=== PATIENT | male | born 1970 | race Caucasian/White ===

== ENCOUNTER → 2022-07-16 | Outpatient (CLI) | payer OTHER ==
--- NOTE | 2022-07-16 08:45 | XR ---
EXAMINATION TYPE: XR knee limited RT DATE OF EXAM: 07/16/2022 8:18 AM INDICATION: Patient age:Male; 51 years old; Reason for study: Z18.10 retained metal fragments; PHH. COMPARISON: None. TECHNIQUE: The Right knee(s) was examined in 3 projections. Frontal, lateral and oblique. FINDINGS: No acute fracture or dislocation. No significant soft tissue swelling or joint effusion. Multiple tiny radiopaque metal fragments identified within the soft tissues of the anterior lateral k nee. IMPRESSION: 1. No acute osseous pathology. 2. Multiple tiny metal fragments identified within the soft tissues of the anterolateral knee.
--- NOTE | 2022-07-16 16:14 | MR ---
EXAMINATION TYPE: MR Rectal wo con DATE OF EXAM: 07/16/2022 11:12 AM CLINICAL INDICATION:Male, 51 years old with history of C20 rectal ca; COMPARISON: None TECHNIQUE: IV Contrast: None TECHNIQUE: Multiplanar, multisequence imaging was performed on a 3T MR scanner with optimized small f ield of view imaging of the rectum. Orthogonal high resolution T2 weighted imaging was obtained thro ugh the rectal mass with additional sequences including T1 weighted images and diffusion weighted jesus ging. IV CONTRAST: None. FINDINGS: IMAGE QUALITY: Adequate PRIMARY TUMOR: MORPHOLOGY, LOCATION, AND CHARACTERISTICS: Distance to anal verge: 11.1 cm Distance to top of anal sphincter complex/anorectal junction: 6.3 cm Relationship to the anterior peritoneal reflection: straddles Craniocaudal length: 5.6 cm Circumferential location (o'clock position): 3 o'clock to 9 o'clock Morphology: Semi-Annular Mucinous: No MRI Rectal Cancer T Category: T3c (tumor penetrates >5-15 mm beyond muscularis propria). There is n o invasion of adjacent structures. It extends 7 mm on series 601 image 14 and appears to extend up to 9 mm on FOR LOW RECTAL TUMORS - Invasion of anal sphincter complex Absent Level of invasion: None EXTRAMURAL VENOUS INVASION (EMVI): No CIRCUMFERENTIAL RESECTION MARGIN (for T3 only) Shortest distance of tumor to MRF (or anticipated CRM): 8 mm (location) 4-5:00 (not applicable if tumor at peritonealized portion of the rectum) Is there a separate tumor deposit, lymph node, or EMVI threatening (> 1 mm and < 2 mm) or invading (< 1 mm) the MRF (if yes, note location): No LYMPH NODES: Mesorectal/superior rectal lymph nodes and/or tumor deposits: N1 - 1-3 suspicious terrance-rectal nodes left internal iliac chain series 601 image 15 , right presacral 601 image 32. *Suspicious morphologic criteria: (1) round shape, (2) irregular borders, (3) heterogenous signal int ensity Superior most suspicious lymph node/deposit is located: Presacral Extra-mesorectal lymph nodes: any suspicious: Yes. Presacral (mesorectal, superior rectal, middle rectal, inferior rectal, sigmoid mesenteric, inferior mesenteric , lateral sacral, presacral, sacral promontory) Locoregional: internal iliac, obturator M1: external iliac, common iliac, inguinal, retroperitoneal OTHER: Curvilinear low T1 signal within the femoral heads. IMPRESSION: * T Stage: T3c (tumor penetrates >5-15 mm beyond muscularis propria). * N Stage: N1 - 1-3 suspicious terrance-rectal nodes * CRM: Clear * Sphincter Involvement: No * Suspicious extramesorectal nodes: Yes, presacral. Other Findings: 1. Bilateral femoral head avascular necrosis changes.
== END | disposition home or self-care (01) ==
LOC: RADMRIMAIN 08:01
PROVIDERS: ATTEND Internal Medicine Hematology & Oncology
DX: C20 Malignant neoplasm of rectum (principal)
CPT/HCPCS: 72195

== ENCOUNTER → 2022-08-31 | Outpatient (CLI) | payer OTHER ==
--- NOTE | 2022-09-03 13:34 | MR ---
EXAMINATION TYPE: MR liver wo/w con DATE OF EXAM: 08/31/2022 9:57 PM INDICATION: Patient age:Male; 51 years old; Reason for study: C20; . Rectal cancer, abnormal PET CT of abdomen COMPARISON: PET/CT 08/07/2022, CT abdomen pelvis 07/24/2015 rectal MRI 07/16/2022 TECHNIQUE: Multiplanar multi-sequence imaging was performed without contrast. Post contrast imaging was performed. Post IV contrast subtraction images were also submitted for review. IV Contrast: 8.5 cc Gadavist FINDINGS: LOWER CHEST: No gross irregularity. ABDOMEN Liver: * No suspicious observations in the area of abnormal subtle increased PET activity on prior PET/CT. * 5 mm high T2 signal focus within segment IVb series 8 on image 36 which demonstrates enhancement t hat persists on delayed imaging. * No signal dropout on out of phase conclusions shift imaging. Gallbladder and Bile ducts: Unremarkable. Pancreas: Unremarkable. Spleen: Unremarkable. Adrenal glands: Unremarkable. Kidneys: Unremarkable. Stomach and Bowel: Small hiatal hernia. No evidence for bowel obstruction or bowel wall thickening. Peritoneum: No evidence of pneumoperitoneum or free fluid. Vasculature: Unremarkable. No aortic aneurysm. Musculoskeletal: The osseous structures appear intact. Lymph Nodes: No gross evidence for lymphadenopathy. Abdominal wall: Unremarkable. IMPRESSION: 1. After further review of PET findings in the areas identified in PET/CT, there is no suspicious en hancement identified within the liver. A right hepatic lobe segment IVb 5 mm observation with enhance ment that persists on delayed imaging is favored to represent a flash filling hemangioma and is more posterior in the liver compared to findings on prior PET/CT. There is no hepatic observation to corre late with PET/CT. The PET imaging liver findings are felt to be heterogenous hepatic FDG uptake on pe t/CT. 2. Mild hepatic steatosis.
== END | disposition home or self-care (01) ==
LOC: RADMRIMAIN 20:45
PROVIDERS: ATTEND Internal Medicine Hematology & Oncology
DX: C20 Malignant neoplasm of rectum (principal); D18.03 Hemangioma of intra-abdominal structures; K76.0 Fatty (change of) liver, not elsewhere classified
CPT/HCPCS: 74183; A9585

== ENCOUNTER → 2024-07-18 | Outpatient (CLI) | payer OTHER ==
--- NOTE | 2024-07-18 13:45 | US ---
EXAMINATION TYPE: US mass soft tissue chest/back DATE OF EXAM: 07/18/2024 COMPARISON: CT CLINICAL INDICATION: Male, 53 years old with history of C20 MALIGNANT NEOPLASM OF RECTUM,; Pt states prior port placement for chemo in right upper chest- port removed 10 months ago, pt states palpable l ump where prior port was TECHNIQUE: Multiple grayscale ultrasound images of the right upper chest and region of prior port wa s obtained. FINDINGS/IMPRESSION: No abnormality visualized within right upper chest where pt feels palpable abno rmality. No mass or fluid collection identified. [facility], , 07/18/2024 1:42 PM
== END | disposition home or self-care (01) ==
LOC: RADUSWWP 12:52
PROVIDERS: ATTEND Internal Medicine Hematology & Oncology
DX: C20 Malignant neoplasm of rectum (principal); I10 Essential (primary) hypertension; E78.5 Hyperlipidemia, unspecified; G62.0 Drug-induced polyneuropathy